=== PATIENT | male | born 1965 | race Caucasian/White ===

== ENCOUNTER 2018-04-17 17:29 | Emergency (ER) | payer BC ==
[2018-04-17] MEDS ORDERED: BACTRIM DS TABLET PO STA (17:49)
[2018-04-17 17:51] VITALS: BP 131/96; PULSE 89; O2SAT 92
[2018-04-17] MEDS ORDERED: BACTRIM DS TABLET PO ONE (17:56)
--- NOTE | 2018-04-17 17:56 | ERPHSYRPT ---
- History of Present Illness Time Seen by Provider: 04/17/18 17:50 Source: patient Physician History: insect bite on upper back for one week, no fever, occasionally drains, utd, denies pain or shortness of breath Allergies/Adverse Reactions: Penicillins Allergy (Mild, Unverified 05/04/13 11:24) Home Medications: Benazepril HCl 10 mg [Lotensin 10 MG] 10 mg PO DAILY 05/04/13 [History] Esomeprazole Magnesium [Nexium] 40 mg PO DAILY 05/04/13 [History] Hx Tetanus, Diphtheria Vaccination/Date Given: Yes (2008) Hx Influenza Vaccination/Date Given: No Hx Pneumococcal Vaccination/Date Given: No - Review of Systems Constitutional: No Fever Eyes: No Eye Redness Ears, Nose, & Throat: No Mouth Pain Respiratory: No Dyspnea Cardiac: No Chest Pain Abdominal/Gastrointestinal: No Abdominal Pain, No Nausea, No Vomiting Musculoskeletal: No Back Pain, No Neck Pain Skin: Skin Lesions Neurological: No Dizziness - Past Medical History Pertinent Past Medical History: Yes Cardiac History: Hypertension GI Medical History: GERD - Past Surgical History Past Surgical History: Yes Gastrointestinal: Cholecystectomy - Social History Smoking Status: Never smoker Exposure to second hand smoke: No Drug Use: none Patient Lives Alone: No - Physical Exam General Appearance: no apparent distress Eye Exam: eyes nml inspection Ears, Nose, Throat Exam: moist mucous membranes Neck Exam: No meningismus Respiratory Exam: lungs clear, No respiratory distress Neurologic Exam: alert, oriented x 3, cooperative Skin Exam: other (4cm nonfluc erythema upper midline back, nontender bony back, no active bleeding or discharge, no streaks) - Course Nursing assessment & vital signs reviewed: Yes Ordered Tests: Medication Summary Discontinued Medications Generic Name Dose Route Start Last Admin Trade Name Freq PRN Reason Stop Dose Admin Trimethoprim/Sulfamethoxazole 1 tab 04/17/18 17:49 Bactrim Ds Tablet PO 04/17/18 17:50 STAT STA - Progress Progress: unchanged - Departure Time of Disposition: 17:53 Departure Disposition: Home Clinical Impression: Cellulitis Qualifiers: Site of cellulitis: trunk Site of cellulitis of trunk: back Qualified Code(s): L03.312 - Cellulitis of back [any part except buttock] Condition: Stable Critical Care Time: No Referrals: FRED NEAL MD [Primary Care Provider] - Instructions: Wound Infection Additional Instructions: see your doctor, return if worse, warm compresses, motrin, bactrim ds Prescriptions: Smz/Tmp Ds Tablet [Bactrim Ds Tablet] 1 udtab PO BID #20 tablet
== END 2018-04-17 18:05 | disposition home or self-care (01) ==
LOC: ED 17:29
DX: L03.312 Cellulitis of back [any part except buttock and flank] (principal); W57.XXXA Bitten or stung by nonvenomous insect and other nonvenomous arthropods, initial encounter; I10 Essential (primary) hypertension; K21.9 Gastro-esophageal reflux disease without esophagitis
CPT/HCPCS: 99283; A9270-GY